=== PATIENT | male | born 1980 | race Caucasian/White ===

== ENCOUNTER → 2019-03-23 07:46 | Outpatient (CLI) | payer OTHER, SELFPAY ==
--- NOTE | 2019-03-23 | DI.ECHO.S_ITS ---
[place]---------+ [facility] +---------+ : : [address] : : : : [id number] : : : : Phone: [phone]+ Echocardiogram Report + + :Name: FEDERICA HDEZ Study Date: 03/23/2019 Height: 70 in : :[facility] Exam Location: [place] Weight: 180 lb : : Gender: Male BSA: 2.0 m2 : :: 1980 Age: 39 yrs BP: 118/75 mmHg: :Reason For Study: PALPITATIONS : : Performed By: Alex Patel : :Referring: [email or web address] : + + Interpretation Summary The left ventricle is normal in size. Left ventricular systolic function is normal without focal wall motion abnormalities. The ejection fraction is estimated to be 55-60%. Diastolic parameters suggest probable normal left ventricular diastolic function and normal filling pressures. The right ventricle is normal in size and function. Pulmonary artery pressures cannot be estimated because of the lack of a measurable TR jet velocity. Both atria are normal in size. There is no significant valvular heart disease. The aortic root is normal size. Procedure: A two-dimensional transthoracic echocardiogram with color flow and Doppler was performed. The study quality was technically good. There is no prior echocardiogram noted for this patient. The patient was in normal sinus rhythm during the exam. The patient was bradycardic with a heart rate of 46-59 beats per minute. Left Ventricle: The left ventricle is normal in size. There is normal left ventricular wall thickness. Left ventricular systolic function is normal without focal wall motion abnormalities. The ejection fraction is estimated to be 55-60%. Diastolic parameters suggest probable normal left ventricular diastolic function and normal filling pressures. Right Ventricle: The right ventricle is normal in size and function. Atria: Both atria are normal in size. The interatrial septum is intact with no evidence for an atrial septal defect. Mitral Valve: The mitral valve is normal in structure and function. There is trace mitral regurgitation. Aortic Valve: The aortic valve is trileaflet. The aortic valve opens well. No aortic regurgitation is present. Tricuspid Valve: The tricuspid valve is normal in structure and function. There is a trace or physiologic amount of tricuspid regurgitation. Pulmonary artery pressures cannot be estimated because of the lack of a measurable TR jet velocity. Pulmonic Valve: The pulmonic valve is normal in structure and function. There is no pulmonic valvular regurgitation. There is no significant valvular heart disease. Great Vessels: The aortic root is normal size. The dimensions of the ascending aorta are normal. The pulmonary artery is normal size. The IVC is of normal diameter and collapses greater than 50% with a sniff. This suggests a low right atrial pressure of 3 mm Hg. Pericardium/ Pleura There is no pericardial effusion. There is no pleural effusion. MMode/2D Measurements & Calculations LVIDd: 4.7 cm LVOT diam: 2.1 cm LVIDs: 3.2 cm Ao root diam: 3.2 cm FS: 33.0 % Aortic Jxn: 2.4 cm EPSS: 0.14 cm asc Aorta Diam: 3.2 cm IVSd: 0.90 cm Ao Arch Diam (Prox Trans): 2.8 cm LVPWd: 0.99 cm LV holliday. diameter/BSA (cm/m^2): 2.4 LV sys. diameter/BSA (cm/m^2): 1.6 LA dimension: 3.4 cm RA long axis: 4.5 cm LA A2 area: 18.0 cm2 RA area: 13.9 cm2 LA A4 area: 20.7 cm2 RA vol: 36.4 ml LA length (vol): 5.6 cm RA : 18.2 ml/m2 LA vol: 56.8 ml IVC diam: 1.7 cm LA vol index: 28.5 ml/m2 Doppler Measurements & Calculations Ao V2 max: 123.8 cm/sec LVOT Max Darius: 109.4 cm/sec Ao V2 mean: 77.5 cm/sec LV V1 max P.8 mmHg Ao max P.1 mmHg LV V1 VTI: 25.1 cm Ao mean P.8 mmHg JASON(I,D): 3.5 cm2 Ao V2 VTI: 25.2 cm JASON(V,D): 3.1 cm2 sev ratio: 0.99 JASON indexed to BSA (cm^2/m^2): 1.8 MV E max darius: 74.7 cm/sec PA V2 max: 69.3 cm/sec MV A max darius: 49.8 cm/sec PA V2 mean: 52.2 cm/sec MV E/A: 1.5 PA mean P.2 mmHg Med Peak E' Darius: 7.7 cm/sec PA pr(Accel): 24.1 mmHg E/E' med: 9.7 PA Accel Time: 0.11 sec Lat Peak E' Darius: 12.3 cm/sec E/E' lat: 6.1 E/e' average: 7.9 MV dec time: 0.15 sec SV(LVOT): 88.2 ml Reading Physician:01:39 PM
== END ==
PROVIDERS: Visit Provider Physician Assistant
DX: R00.2 Palpitations (principal)
CPT/HCPCS: 93306